=== PATIENT | female | born 1955 | race Caucasian/White ===

== ENCOUNTER 2017-09-18 23:32 | Emergency (ER) | payer OTHER ==
[~2017-09-18] VITALS: Ht 152.4 cm; Wt 89.9 kg
[2017-09-18 23:44] VITALS: BP 143/72
[2017-09-19] MEDS ORDERED: KETOROLAC 30 MG/ML VIAL IM ONE (01:10)
[2017-09-19 01:38] VITALS: BP 142/73
== END 2017-09-19 01:38 | disposition home or self-care (01) ==
LOC: MED 23:32
DX: B02.9 Zoster without complications (principal); R51 Headache; Z88.0 Allergy status to penicillin
CPT/HCPCS: 96372; 99283; J1885

== ENCOUNTER 2018-01-20 12:54 | Emergency (ER) | payer OTHER ==
[~2018-01-20] VITALS: Ht 154.9 cm; Wt 93.0 kg
--- NOTE | 2018-01-20 13:03 | NUR ---
PT AMBULATED TO ER BED 06.
[2018-01-20 13:04] VITALS: BP 136/105
--- NOTE | 2018-01-20 13:23 | NUR ---
PT BIB WITH C/O LOWER ABDOMINAL PAIN RADIATING TO THE BACK X 2 WKS; DENIES N/V/D; TAKING BACTRIM FOR UTI X 7 DAYS. VSS; PATIENT POSITIONED FOR COMFORT; HOB ELEVATED; BEDRAILS UP X1; BED DOWN. ER MD MADE AWARE OF PT STATUS.
[2018-01-20] MEDS ORDERED: KETOROLAC 60 MG/2 ML VIAL IM ONE (13:40)
[2018-01-20 14:01] VITALS: BP 124/74
--- NOTE | 2018-01-20 14:01 | NUR ---
Patient discharged with v/s stable. Written and verbal after care instructions given and explained. Patient alert, oriented and verbalized understanding of instructions. Ambulatory with steady gait. All questions addressed prior to discharge. ID band removed. Patient advised to follow up with PMD. Rx of Cipro, Pyridium, [place] given. Patient educated on indication of medication including possible reaction and side effects. Opportunity to ask questions provided and answered.
== END 2018-01-20 14:01 | disposition home or self-care (01) ==
LOC: MED 12:54
DX: N39.0 Urinary tract infection, site not specified (principal); Z88.0 Allergy status to penicillin; Z90.49 Acquired absence of other specified parts of digestive tract
CPT/HCPCS: 87086; 96372; 99283; J1885; 81002

== ENCOUNTER 2018-03-18 11:19 | Emergency (ER) | payer OTHER ==
[~2018-03-18] VITALS: Ht 154.9 cm; Wt 93.9 kg
[2018-03-18 11:26] VITALS: BP 168/98
--- NOTE | 2018-03-18 11:34 | NUR ---
pt ambulated to bed 11
--- NOTE | 2018-03-18 11:34 | NUR ---
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
[2018-03-18] MEDS ORDERED: ONDANSETRON 4 MG ODT PO ONE (11:55)
[2018-03-18] MEDS ORDERED: KETOROLAC 60 MG/2 ML VIAL IM ONE (11:55)
[2018-03-18 12:05] VITALS: BP 158/75
--- NOTE | 2018-03-18 12:06 | NUR ---
Patient discharged with v/s stable. Written and verbal after care instructions given and explained. Patient alert, oriented and verbalized understanding of instructions. Ambulatory with steady gait. All questions addressed prior to discharge. ID band removed. Patient advised to follow up with PMD. Rx of ZOFRAN AND NORCO given. Patient educated on indication of medication including possible reaction and side effects. Opportunity to ask questions provided and answered.
== END 2018-03-18 12:06 | disposition home or self-care (01) ==
LOC: MED 11:19
DX: R51 Headache (principal); R11.0 Nausea; R30.0 Dysuria; Z88.0 Allergy status to penicillin; Z90.49 Acquired absence of other specified parts of digestive tract
CPT/HCPCS: 81002; 96372; 99283; J1885; Q0162

== ENCOUNTER 2020-10-15 13:11 | Emergency (ER) | payer OTHER ==
[~2020-10-15] VITALS: Ht 157.5 cm; Wt 91.6 kg
[2020-10-15 13:32] VITALS: BP 146/85
--- NOTE | 2020-10-15 13:42 | NUR ---
65 Y/O F BIB SPOUSE FROM HOME, C/O BILATERAL LEG PAIN FOR 1 MO. DENIES N/V/D; SKIN IS PINK/WARM/DRY, CLUSTER ON VARICOSE VEINS AND PITTING EDEMA +1 ON R LEG; AAOX4 WITH EVEN AND STEADY GAIT; LUNGS CLEAR BL; HR EVEN AND REGULAR; PT DENIES ANY FEVER, CP, SOB, OR COUGH AT THIS TIME; PATIENT STATES PAIN OF 10/10 AT THIS TIME, BURNING SENSATION; VSS; PATIENT POSITIONED FOR COMFORT; HOB ELEVATED; BEDRAILS UP X2; BED DOWN. ER MD MADE AWARE OF PT STATUS. PT IS ABLE TO FLEX AND EXTEND LOWER EXTREMITIES, CAP REFILL <3. PMH: HTN MED: IBUPROFEN 800MG @1000 NO RELIEF ALLERGY: PENICILLIN (HIVES)
[2020-10-15] MEDS ORDERED: GABA300C PO (14:15)
[2020-10-15 14:32] VITALS: BP 146/85
--- NOTE | 2020-10-15 14:32 | NUR ---
Patient discharged with v/s stable. Written and verbal after care instructions given neuropathic pain and explained. Patient alert, oriented and verbalized understanding of instructions. Ambulatory with steady gait. All questions addressed prior to discharge. ID band removed. Patient advised to follow up with PMD. Rx of gabapentin 300mg po bid for 7days given. Patient educated on indication of medication including possible reaction and side effects. Opportunity to ask questions provided and answered.
== END 2020-10-15 14:32 | disposition home or self-care (01) ==
LOC: MED 13:11
DX: G62.9 Polyneuropathy, unspecified (principal); Z88.0 Allergy status to penicillin; Z79.899 Other long term (current) drug therapy; Z90.49 Acquired absence of other specified parts of digestive tract; Z98.890 Other specified postprocedural states
CPT/HCPCS: 99283

== ENCOUNTER 2022-11-15 08:47 | Emergency (ER) | payer OTHER ==
[~2022-11-15] VITALS: Ht 157.5 cm; Wt 87.1 kg
[~2022-11-15 08:47] MED LIST: GABA300C PO
[2022-11-15 09:12] VITALS: BP 151/93; PULSE 60; RESP 20; TEMP 96.8; O2SAT 93
--- NOTE | 2022-11-15 11:32 | NUR ---
CALLED TO BE SEEN BY DOCTOR WITHOUT RESPONSE INSIDE AND OUTSIDE THE WAITING ROOM
--- NOTE | 2022-11-15 11:44 | NUR ---
CALLED BY NURSE TO BE SEEN BY MD WITHOUT RESPONSE INSIDE AND OUTSIDE THE WAITING ROOM
--- NOTE | 2022-11-15 11:50 | NUR ---
PT LEFT WITHOUT BEING SEEN BY DOCTOR
[2022-11-15 12:08] LABS: APPEARANCE,URINE CLEAR (CLEAR); BILIRUBIN,URINE NEGATIVE (NEGATIVE); BLOOD, URINE NEGATIVE (NEGATIVE); COLOR,URINE YELLOW (YELLOW); LEUKOCYTE ESTERASE ,URINE 1+ (NEGATIVE); NITRITE, URINE NEGATIVE (NEGATIVE); UGLUCOSE NEGATIVE (NEGATIVE)
[2022-11-15 12:22] LABS: RBC,URINE 0-5 /HPF (0-5)
== END 2022-11-15 11:50 | disposition left against medical advice (07) ==
LOC: MED 08:47
DX: R35.0 Frequency of micturition (principal); Z53.21 Procedure and treatment not carried out due to patient leaving prior to being seen by health care provider
CPT/HCPCS: 81001; 87086; 99281